=== PATIENT | male | born 1955 | race African-American/Black ===

== ENCOUNTER 2020-05-24 13:28 | Emergency (ER) | payer OTHER, MEDICARE ==
--- NOTE | 2020-05-24 13:46 | ER Document Report ---
ED Medical Screen (RME) - General Chief Complaint: Leg Pain Stated Complaint: LEG PAIN Time Seen by Provider: 05/24/20 13:38 Mode of Arrival: Wheelchair Information source: Patient Notes: 64-year-old male presented to ED for complaint of left posterior leg pain from knee to ankle for about a month. He states he has been in the hospital a couple times with it and is never found it was going on. He does smoke a pack a day drinks either 1-1-1/2 fifths of liquor a week. Does not use any illicit drugs. He states he was seen in [facility] and he thinks they did a ultrasound type test to his leg where the one gel and this machine over his legs he does not know what else they have done so far. He has never been to this hospital before. We will reorder the Doppler x-ray blood and urine and have him evaluated by 1 of the doctors. I have greeted and performed a rapid initial assessment of this patient. A comprehensive ED assessment and evaluation of the patient, analysis of test results and completion of medical decision making process will be conducted by an additional ED providers. Physical Exam - Vital signs Vitals: Temp Pulse Resp BP Pulse Ox 98.5 F 79 20 185/92 H 98 05/24/20 13:38 05/24/20 13:38 05/24/20 13:38 05/24/20 13:38 05/24/20 13:38 Course - Vital Signs Vital signs: Temp Pulse Resp BP Pulse Ox 98.5 F 79 20 185/92 H 98 05/24/20 13:38 05/24/20 13:38 05/24/20 13:38 05/24/20 13:38 05/24/20 13:38
--- NOTE | 2020-05-24 14:56 | RADIOLOGY REPORT (SQ) ---
EXAM DESCRIPTION: TIBIA FIBULA LEFT IMAGES COMPLETED DATE/TIME: 05/24/2020 1:23 pm REASON FOR STUDY: Pain left leg COMPARISON: None. NUMBER OF VIEWS: Two views. TECHNIQUE: Two radiographic images acquired of the left tibia and fibula to include the knee and ank le in at least one projection. LIMITATIONS: None. FINDINGS: MINERALIZATION: Normal. BONES: No acute fracture or dislocation. No worrisome bone lesions. SOFT TISSUES: Chondrocalcinosis at the knee. OTHER: No other significant finding. IMPRESSION: No acute fracture of the left lower extremity. TECHNICAL DOCUMENTATION: JOB ID: [id number] [employer]- All Rights Reserved Reading location - IP/workstation name: [email or web address]
[2020-05-24 15:25] LABS: ABSOLUTE EOSINOPHILS # (AUTO) 0.1 10^3/uL (0.0-0.6); ABSOLUTE LYMPHOCYTES (AUTO) 2.4 10^3/uL (0.5-4.7); ABSOLUTE MONOCYTES (AUTO) 0.3 10^3/uL (0.1-1.4); ABSOLUTE NEUT (AUTO) 1.5 10^3/uL (1.7-8.2); BASOPHILS % (AUTO) 0.7 % (0-2); EOSINOPHILS % (AUTO) 2.8 % (0-6); HEMATOCRIT 45.7 % (37.9-51.0); HEMOGLOBIN 15.6 g/dL (13.5-17.0); LYMPHOCYTES % (AUTO) 55.1 % (13-45); MEAN CORPUSCULAR HEMOGLOBIN 30.2 pg (27.0-33.4); MEAN CORPUSCULAR HGB CONC 34.1 g/dL (32.0-36.0); MEAN CORPUSCULAR VOLUME 89 fl (80-97); MONOCYTES % (AUTO) 7.5 % (3-13); PLATELET COUNT 153 10^3/uL (150-450); RED BLOOD COUNT 5.15 10^6/uL (4.35-5.55); RED CELL DISTRIBUTION WIDTH 13.2 % (11.5-14.0); SEGMENTED NEUTROPHILS % (AUTO) 33.9 % (42-78); TOTAL CELLS COUNTED % (AUTO) 100 %; WHITE BLOOD COUNT 4.4 10^3/uL (4.0-10.5)
[2020-05-24 15:36] LABS: ALKALINE PHOSPHATASE 86 U/L (38-126); ANION GAP 8 (5-19); ASPARTATE AMINO TRANSFERASE 148 U/L (17-59); BILIRUBIN,DIRECT 0.4 mg/dL (0.0-0.4); BILIRUBIN,TOTAL 0.8 mg/dL (0.2-1.3); BLOOD UREA NITROGEN 10 mg/dL (7-20); CALCIUM 9.2 mg/dL (8.4-10.2); CARBON DIOXIDE 26 mmol/L (22-30); CHLORIDE 109 mmol/L (98-107); CREATINE KINASE 170 U/L (55-170); GLUCOSE 96 mg/dL (75-110); TOTAL PROTEIN 7.9 g/dL (6.3-8.2)
[2020-05-24 15:43] LABS: APPEARANCE,URINE CLEAR; BILIRUBIN,URINE NEGATIVE (NEGATIVE); COLOR,URINE YELLOW; GLUCOSE, URINE NEGATIVE (NEGATIVE); KETONES,URINE NEGATIVE (NEGATIVE); LEUKOCYTE ESTERASE,URINE NEGATIVE (NEGATIVE); NITRITE,URINE NEGATIVE (NEGATIVE); PROTEIN,URINE NEGATIVE (NEGATIVE); URINE SPECIFIC GRAVITY 1.011
--- NOTE | 2020-05-24 15:51 | RADIOLOGY REPORT (SQ) ---
EXAM DESCRIPTION: KNEE LEFT 4 VIEW IMAGES COMPLETED DATE/TIME: 05/24/2020 1:23 pm REASON FOR STUDY: Pain left leg COMPARISON: None. NUMBER OF VIEWS: Four views. TECHNIQUE: AP, lateral, and both oblique radiographic images acquired of the left knee. LIMITATIONS: None. FINDINGS: MINERALIZATION: Normal. BONES: No acute fracture or cortical disruption. No significant osteophytosis. JOINT: Chondrocalcinosis in the medial and lateral compartments. No intra-articular loose body. No joint effusion. SOFT TISSUES: No soft tissue swelling. No radio-opaque foreign body. OTHER: No other significant finding. IMPRESSION: 1. No acute fracture or dislocation of the left knee. 2. Chondrocalcinosis which can be seen with CPPD or gout. TECHNICAL DOCUMENTATION: JOB ID: [id number] [employer]- All Rights Reserved Reading location - IP/workstation name: [email or web address]
--- NOTE | 2020-05-24 16:25 | RADIOLOGY REPORT (SQ) ---
EXAM DESCRIPTION: VENOUS UNILATERAL LOWER IMAGES COMPLETED DATE/TIME: 05/24/2020 3:40 pm REASON FOR STUDY: Left leg pain to the back of the leg for about a m COMPARISON: None. TECHNIQUE: Dynamic and static villasenor scale and color images acquired of the left leg venous system. Se lected spectral images acquired with additional compression and augmentation maneuvers. The contralat eral common femoral vein and saphenofemoral junction were also imaged. Images stored on PACS. LIMITATIONS: None. FINDINGS: COMMON FEMORAL: Normal phasicity, compression and augmentation. No visualized echogenic ma terial on villasenor scale. No defects on color images. FEMORAL: Normal compression and augmentation. No visualized echogenic material on villasenor scale. No defe cts on color images. POPLITEAL: Normal compression, augmentation. No visualized echogenic material on villasenor scale. No defec ts on color images. CALF VESSELS: Normal compression, augmentation. No visualized echogenic material on villasenor scale. No de fects on color images. GSV and SSV: Normal compression, augmentation. No visualized echogenic material on villasenor scale. No def ects on color images. ANY DEEP VENOUS INSUFFICIENCY: Not evaluated. ANY EVIDENCE OF POPLITEAL CYST: No. OTHER: No other significant finding. CONTRALATERAL COMMON FEMORAL VEIN AND SAPHENOFEMORAL JUNCTION: Normal phasicity, compression and augmentation. No visualized echogenic material on villasenor scale. No de fects on color images. IMPRESSION: NO EVIDENCE OF DVT OR SVT IN THE LEFT LEG. TECHNICAL DOCUMENTATION: JOB ID: [id number] 2010 [employer]- All Rights Reserved Reading location - IP/workstation name: [email or web address]
[2020-05-24] MEDS ORDERED: KETOROLAC TROMETHAMINE 60 MG/2 ML SDV IM ONE (17:53)
--- NOTE | 2020-05-24 17:53 | ER Document Report ---
ED Extremity Problem, Lower - General Chief Complaint: Leg Pain Stated Complaint: LEG PAIN Time Seen by Provider: 05/24/20 13:38 Mode of Arrival: Wheelchair Information source: Patient Notes: This 64-year-old man presents to the emergency department with a complaint of pain in the left leg involving the calf area. States that he has been having pain in his leg for approximately 1 month. He denies a history of trauma and apparently seen at [facility] with a ultrasound that was performed, however the patient is unable to give a report of what was seen. He has been taken Tylenol for pain does complain of pain at rest and no obvious swelling or open lesions are noted. - Related Data Allergies/Adverse Reactions: No Known Allergies Allergy (Verified 05/24/20 13:52) Past Medical History - General Information source: Patient - Social History Smoking Status: Current Every Day Smoker Chew tobacco use (# tins/day): No Frequency of alcohol use: None Drug Abuse: None Family History: Reviewed & Not Pertinent Review of Systems - Review of Systems Notes: Constitutional: Negative for fever. HENT: Negative for sore throat. Eyes: Negative for visual changes. Cardiovascular: Negative for chest pain. Respiratory: Negative for shortness of breath. Gastrointestinal: Negative for abdominal pain, vomiting or diarrhea. Genitourinary: Negative for dysuria. Musculoskeletal: See HPI Skin: Negative for rash. Neurological: Negative for headaches, weakness or numbness. 10 point ROS negative except as marked above and in HPI. Physical Exam - Vital signs Vitals: Temp Pulse Resp BP Pulse Ox 98.5 F 79 20 185/92 H 98 05/24/20 13:38 05/24/20 13:38 05/24/20 13:38 05/24/20 13:38 05/24/20 13:38 - Notes Notes: PHYSICAL EXAMINATION: Physical Exam: General: Well-nourished well-developed 4-year-old man in no acute distress HEENT: NC/AT, pupils equal round and reactive to light, MM moist,nares clear, oropharynx clear, airway patent Neck: supple, no adenopathy, no masses. Good range of motion Lungs: clear, no wheezing, no rales no rhonchi CVS: Regular rate and rhythm no murmur gallop or rub Abdomen: Soft, active, nontender, no masses, no hepatosplenomegaly Ext: Left lower extremity with no edema,, no open lesions, no rash involving the left lower extremity. Neuro: Alert and responsive, moving all 4 extremities on command, cranial nerves intact, no focal findings Skin: Intact no open lesions, no rash PSYCH: Normal mood, normal affect. Course - Re-evaluation Re-evalutation: 05/24/20 17:52 Left leg pain evaluated with a plain film x-ray of the tib-fib, knee, and Doppler. The studies are negative. Leg does not reveal signs of poor oxygen nation secondary to poor pulses. 05/24/20 18:45 Discussed the findings of the x-ray and ultrasound with the patient. He is being referred to a specialist by his primary next week. He is being discharged home with a prescription for pain and also a muscle relaxant. - Vital Signs Vital signs: Temp Pulse Resp BP Pulse Ox 98.8 F 87 16 169/103 H 98 05/24/20 19:05 05/24/20 19:05 05/24/20 19:05 05/24/20 19:05 05/24/20 19:05 - Laboratory Result Diagrams: 05/24/20 14:50 05/24/20 14:50 Laboratory results interpreted by me: 05/24/20 05/24/20 05/24/20 14:50 14:50 15:00 Lymph % (Auto) 55.1 H Absolute Neuts (auto) 1.5 L Seg Neutrophils % 33.9 L Chloride 109 H AST 148 H ALT 120 H Urine Urobilinogen 2.0 H 05/24/20 18:45 I have reviewed laboratory data and used this information for the treatment decisions regarding the patient. - Diagnostic Test Radiology reviewed: Image reviewed, Reports reviewed Radiology results interpreted by me: 05/24/20 18:45 Venous Doppler Study 05/24/20 13:44 IMPRESSION: NO EVIDENCE OF DVT OR SVT IN THE LEFT LEG. Knee X-Ray 05/24/20 13:45 IMPRESSION: 1. No acute fracture or dislocation of the left knee. 2. Chondrocalcinosis which can be seen with CPPD or gout. Tibia/Fibula X-Ray 05/24/20 13:45 IMPRESSION: No acute fracture of the left lower extremity. Discharge - Discharge Clinical Impression: Left leg pain Condition: Good Disposition: HOME, SELF-CARE Instructions: Leg Pain Nonspecific ([facility]) Additional Instructions: You are seen in the emergency department with left leg pain. X-ray and Doppler ultrasound are negative. Please keep the appointment with the specialist that you were referred to by your primary care doctor. You can use the medications as prescribed Toradol, baclofen. HOME CARE INSTRUCTIONS & INFORMATION: Thank you for choosing us for your medical needs. We hope you're satisfied with the care you received. After you leave, you must properly care for your problem and, at the same time, observe its progress. Any condition can change. Some illnesses can change rapidly over hours or days. If your condition worsens, return to the Emergency Department or see your physician promptly. ABOUT YOUR X-RAYS AND EKG'S: If you had an EKG or X-rays taken, they have been read by the Emergency Physician. The X-rays and EKG's will also be read by a Radiologist or Corporate Treasury Analyst within 24 hours. If discrepancies are noted, you will be notified by telephone. Please be certain the ED has a correct telephone number & address where you can be reached. Also, realize that some fractures or abnormalities do not show up on initial X-rays. If your symptoms continue, see your physician. ABOUT YOUR LABORATORY TEST: If you had laboratory tests, the results have been reviewed by the Emergency Physician. Some test results (for example cultures) may not be available for several days. You will be contacted if any test result shows you need additional treatment. Please be certain the ED has a correct [employer] number and address where you can be reached. ABOUT YOUR MEDICATIONS: You will receive instructions on how to take your medicine on the prescription label you receive. Additional information may be provided by the Pharmacy. If you have questions afterwards, call the ED for clarification or further instructions. Some prescribed medications may cause drowsiness. Do not perform tasks such as driving a car or operating machinery without consulting your Pharmacist. If you feel you need a refill of pain medication, your condition will need re-evaluation. Please do not call for a refill of any medication. ABOUT YOUR SIGNATURE: Signature of this document acknowledges to followin. Understanding that you received emergency treatment and that you may be released before al medical problems are known or treated. Please be certain the ED has a correct phone number & address where you can be reached. 2. Acknowledgement that you will arrange for follow-up care as recommended. 3. Authorization for the Emergency Physician to provide information to your follow-up Physician in order to maximize your care. AT ANY TIME, IF YOUR SYMPTOMS CHANGE SIGNIFICANTLY OR WORSEN OR YOU DEVELOP NEW SYMPTOMS, RETURN TO THE EMERGENCY DEPARTMENT IMMEDIATELY FOR RE-EVALUATION. OUR GOAL IS TO PROVIDE EXCELLENT MEDICAL CARE! WE HOPE THAT WE HAVE MET YOUR EXPECTATIONS DURING YOUR EMERGENCY DEPARTMENT VISIT AND THAT YOU FEEL YOU HAVE RECEIVED EXCELLENT CARE! Prescriptions: Ketorolac Tromethamine [Toradol 10 mg Tablet] 10 mg PO Q6HP PRN #12 tablet PRN Reason: For Pain Baclofen [Baclofen 10 mg Tablet] 10 mg PO TID #14 tab
[2020-05-24 19:15] VITALS: BP 169/103
== END 2020-05-24 19:14 | disposition home or self-care (01) ==
LOC: ER 13:28
DX: M79.662 Pain in left lower leg (principal); M11.262 Other chondrocalcinosis, left knee; F17.200 Nicotine dependence, unspecified, uncomplicated
CPT/HCPCS: 99285; 96372; 36415; 82550; 83690; 85025; 80053; 81001; 93971; 73564; 73590; J1885